=== PATIENT | male | born 1965 | race Caucasian/White ===

== ENCOUNTER 2017-06-23 10:26 | Emergency (ER) | payer BC, OTHER ==
[2017-06-23 11:51] VITALS: BP 119/73
--- NOTE | 2017-06-23 12:37 | UC ---
Eye Complaint HPI - HPI Summary HPI Summary: patient got a FB in the eye while changing a boiler at work, he is unsure of what it was, tried to flush it out, thought it was improving but woke up with eye swollen and purulent draingage out of the eye. mild pain. - History of Current Complaint Chief Complaint: UCEye Stated Complaint: WC - LEFT EYE COMPLAINT Time Seen by Provider: 06/23/17 12:22 Hx Obtained From: Patient Onset/Duration: Sudden Onset, Lasting Days Timing: Constant Severity Initially: Mild Severity Currently: Moderate Pain Intensity: 0 Location of Injury: Conjunctiva, Eye Lid (lower), Eye Lid (upper), Sclera Character: Foreign Body Sensation Aggravating Factor(s): Nothing Associated Signs And Symptoms: Positive: Drainage (Purulent), Swelling - Allergies/Home Medications Allergies/Adverse Reactions: Allergies Allergy/AdvReac Type Severity Reaction Status Date / Time No Known Allergies Allergy Verified 06/23/17 11:42 Home Medications: Home Medications NK [No Home Medications Reported] 06/23/17 [History Confirmed 06/23/17] PMH/Surg Hx/FS Hx/Imm Hx Previously Healthy: Yes - Surgical History Surgical History: None - Family History Known Family History: Positive: Hypertension - Social History Alcohol Use: Rare Substance Use Type: Excessive Caffeine Smoking Status (MU): Light Every Day Tobacco Smoker - Immunization History Most Recent Tetanus Shot: UNKNOWN Review of Systems Constitutional: Negative Skin: Negative Eyes: Eye Redness ENT: Negative Respiratory: Negative Cardiovascular: Negative Gastrointestinal: Negative Genitourinary: Negative Motor: Negative Neurovascular: Negative Musculoskeletal: Negative Neurological: Negative Psychological: Negative Is Patient Immunocompromised?: No All Other Systems Reviewed And Are Negative: Yes Physical Exam Triage Information Reviewed: Yes Appearance: Well-Appearing, Well-Nourished, Pain Distress Vital Signs: Initial Vital Signs Temp 97.9 F 06/23/17 11:44 Pulse 56 06/23/17 11:44 Resp 18 06/23/17 11:44 BP 119/73 06/23/17 11:44 Pulse Ox 98 06/23/17 11:44 Vital Signs Reviewed: Yes Eyes: Positive: Conjunctiva Inflamed, Discharge - tearing, upper and power lids are mildy swollen, irritation of the sclera is noted, no FB is seen, ENT Exam: Normal ENT: Positive: Pharynx normal, TMs normal Dental Exam: Normal Neck exam: Normal Neck: Positive: Supple, Nontender, No Lymphadenopathy Respiratory Exam: Normal Respiratory: Positive: Chest non-tender, Lungs clear, Normal breath sounds Cardiovascular Exam: Normal Cardiovascular: Positive: RRR, No Murmur, Pulses Normal Abdominal Exam: Normal Abdomen Description: Positive: Nontender, No Organomegaly, Soft Bowel Sounds: Positive: Present Musculoskeletal Exam: Normal Neurological Exam: Normal Psychological Exam: Normal Skin Exam: Normal Eye Complaint Course/Dx - Course Course Of Treatment: hx obtained, eaxm performed ,meds reviewed, exam exam completed with light, flushed with normal saline, patient did feel relief. treated with ABX - Differential Dx/Diagnosis Differential Diagnosis/HQI/PQRI: Conjunctivitis, Corneal Abrasion, Periorbital Cellulitis, Orbital Cellulitis Provider Diagnoses: corneal abraision, orbital swelling Discharge - Discharge Plan Condition: Stable Disposition: HOME Patient Education Materials: Eye Foreign Body (ED), Corneal Abrasion (DC) Referrals: No Primary Care Phys,NOPCP [Primary Care Provider] - Rickey Gonzalez MD [Medical Doctor] - Additional Instructions: 1. use the cream for 5 days, 2. Warm compress to the eye to relive swelling 3. If not improving in the next few days, follow up with Dr Gonzalez.
== END 2017-06-23 12:46 | disposition home or self-care (01) ==
LOC: UCCORT 10:26
DX: S05.02XA Injury of conjunctiva and corneal abrasion without foreign body, left eye, initial encounter (principal); X58.XXXA Exposure to other specified factors, initial encounter; Y93.89 Activity, other specified; Y92.89 Other specified places as the place of occurrence of the external cause; F17.200 Nicotine dependence, unspecified, uncomplicated
CPT/HCPCS: 99202; G0463